=== PATIENT | female | born 1945 | race Caucasian/White ===

== ENCOUNTER 2022-11-05 19:00 | Emergency (ER) | payer OTHER, MEDICARE ==
[2022-11-05 19:16] VITALS: BP 133/71; PULSE 76; RESP 18; TEMP 98.5; BMI 27.4
== END 2022-11-05 19:43 | disposition home or self-care (01) ==
LOC: FER 19:00
DX: T16.2XXA Foreign body in left ear, initial encounter (principal)
CPT/HCPCS: 99282-25